=== PATIENT | female | born 1945 | race Caucasian/White ===

== ENCOUNTER 2016-07-31 19:59 | Emergency (ER) | payer MEDICARE, OTHER ==
[2016-07-31] MEDS ORDERED: ACETAMINOPHEN 325 MG TABLET ONE (21:43)
[2016-07-31] MEDS ORDERED: IBUPROFEN 600 MG TABLET ONE (21:43)
== END 2016-07-31 21:55 | disposition home or self-care (01) ==
LOC: ED 19:59
DX: J09.X2 Influenza due to identified novel influenza A virus with other respiratory manifestations (principal)
CPT/HCPCS: 87804; 99283 ×2; A9270 ×2